=== PATIENT | female | born 1990 | race Two or more races ===

== ENCOUNTER 2018-08-24 21:38 | Emergency (ER) | payer OTHER ==
[~2018-08-24] VITALS: Ht 172.7 cm; Wt 99.8 kg
--- NOTE | 2018-08-24 21:50 | NUR ---
PT BIBSELF COMPLAINING OF ALLERGIC REACTION. PT STATES AROUND 2100 SHE ATE FOOD THAT CONTAINED ALMONDS AND CASHEWS. PT DOES NOT HAVE HX OF ALLERGIES. PT HAS REDNESS OVER FACE AND UPPER EXT. PT FEELS IF "THROAT IS CLOSING" AND ITCHY MOUTH. 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 PT TACHYCARDIC ON THE MONITOR. PT SATURATION 99%
[2018-08-24] MEDS ORDERED: ONDANSETRON HCL/PF 4 MG/2 ML VIAL ONE (21:52)
[2018-08-24] MEDS ORDERED: EPINEPHRINE (1:1000) 1 MG/ML AMPUL ONE (21:52)
[2018-08-24] MEDS ORDERED: FAMOTIDINE/PF INJ 20 MG/2 ML VIAL IV ONE ×2 (21:52→22:00)
[2018-08-24] MEDS ORDERED: methylPREDNISolone SOD SUCC 125 MG/2ML VIAL ONE (21:52)
[2018-08-24] MEDS ORDERED: diphenhydrAMINE HCL 50 MG/ML VIAL ONE (21:52)
[2018-08-24] MEDS ORDERED: EPINEPHRINE (1:1000) MDV 30 MG/30ML VIAL SUBCUT ONE (22:00)
[2018-08-24] MEDS ORDERED: ONDANSETRON HCL/PF 4 MG/2 ML VIAL IVP ONE (22:00)
[2018-08-24] MEDS ORDERED: methylPREDNISolone SOD SUCC 125 MG/2ML VIAL IV ONE (22:00)
[2018-08-24] MEDS ORDERED: IV NS 0.9% 1,000 ML BAG IV ONE (22:00)
[2018-08-24] MEDS ORDERED: diphenhydrAMINE HCL 50 MG/ML VIAL IV ONE (22:00)
--- NOTE | 2018-08-24 22:30 | NUR ---
PT RESTING IN BED COMFORTABLY, NAD NOTED. WILL CONTINUE TO MONITOR.
[2018-08-24 23:43] VITALS: BP 103/77
--- NOTE | 2018-08-24 23:43 | NUR ---
Patient discharged to home in stable condition. Written and verbal after care instructions given. Patient verbalizes understanding of instruction. IV removed. Catheter intact and site benign. Pressure and 4x4 applied to site. No bleeding noted.
== END 2018-08-24 23:44 | disposition home or self-care (01) ==
LOC: ER 21:40
DX: T78.1XXA Other adverse food reactions, not elsewhere classified, initial encounter (principal); X58.XXXA Exposure to other specified factors, initial encounter
CPT/HCPCS: 96372; 96374; 96375; 99283; A4216; J0171 ×2; J1200; J2405; J2930; J3490; J7030